=== PATIENT | male | born 1965 | race African-American/Black ===

== ENCOUNTER 2019-07-30 17:41 | Emergency (ER) | payer OTHER ==
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
[2019-07-30] MEDS ORDERED: Ibuprofen 800 MG TAB ONE (18:39)
== END 2019-07-30 18:57 | disposition home or self-care (01) ==
LOC: BURERS 17:41
DX: S16.1XXA Strain of muscle, fascia and tendon at neck level, initial encounter (principal); F17.210 Nicotine dependence, cigarettes, uncomplicated; I10 Essential (primary) hypertension; Z71.6 Tobacco abuse counseling; V64.5XXA Driver of heavy transport vehicle injured in collision with heavy transport vehicle or bus in traffic accident, initial encounter
CPT/HCPCS: 72125; 99406